=== PATIENT | female | born 1985 | race American Indian/Alaskan Native ===

== ENCOUNTER 2019-03-15 12:10 | Emergency (ER) | payer MEDICAID, OTHER ==
[2019-03-15 12:16] VITALS: BP 113/96; PULSE 88
--- NOTE | 2019-03-15 12:27 | EDM.PDOC ---
ED HPI GENERAL MEDICAL PROBLEM - General Chief Complaint: Abdominal Pain Stated Complaint: AMBULANCE Time Seen by Provider: 03/15/19 12:27 Source of Information: Reports: Patient, EMS, EMS Notes Reviewed, RN, RN Notes Reviewed History Limitations: Reports: No Limitations - History of Present Illness INITIAL COMMENTS - FREE TEXT/NARRATIVE: Pt to ER with c/o left sided abdominal pain. States the sharp pain began this morning. She states the last thing she ate was popcorn. States she has had diarrhea and nausea since this morning. Admits to fever and chills at times. States she has had her tubes tied, no chances of . States no sexual intercourse recently. Denies burning, frequency, urgency with urination. Onset: Today, Sudden Duration: Constant Location: Reports: Abdomen Quality: Reports: Sharp Severity: Moderate Improves with: Reports: None Worsens with: Reports: None - Related Data Allergies Allergy/AdvReac Type Severity Reaction Status Date / Time No Known Allergies Allergy Verified 03/15/19 12:12 Home Meds: Home Meds . 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 Musculoskeletal History: Reports: Osteoarthritis Neurological History: Reports: None Psychiatric History: Reports: Addiction Endocrine/Metabolic History: Reports: None Hematologic History: Reports: None Immunologic History: Reports: None Oncologic (Cancer) History: Reports: None Dermatologic History: Reports: None - Infectious Disease History Infectious Disease History: Reports: Chicken Pox - Past Surgical History Head Surgeries/Procedures: Reports: None GI Surgical History: Reports: Cholecystectomy Female Surgical History: Reports: Section Social & Family History - Family History Family Medical History: Noncontributory - Tobacco Use Smoking Status *Q: Current Every Day Smoker Years of Tobacco use: 17 Packs/Tins Daily: 1 - Caffeine Use Caffeine Use: Reports: Coffee, Soda Other Caffeine Use: unknown - Recreational Drug Use Recreational Drug Use: Yes Drug Use in Last 12 Months: Yes Recreational Drug Type: Reports: Marijuana/Hashish Recreational Drug Use Frequency: Daily - Living Situation & Occupation Living situation: Reports: , with Family ED ROS GENERAL - Review of Systems Review Of Systems: ROS reveals no pertinent complaints other than HPI. ED EXAM, GI/ABD - Physical Exam Exam: See Below Exam Limited By: No Limitations General Appearance: Alert, WD/WN, Moderate Distress Eyes: Bilateral: Normal Appearance, EOMI Ears: Normal External Exam, Hearing Grossly Normal Nose: Normal Inspection Throat/Mouth: Normal Inspection, Normal Voice, No Airway Compromise Head: Atraumatic, Normocephalic Neck: Normal Inspection, Supple, Non-Tender, Full Range of Motion Respiratory/Chest: No Respiratory Distress, Lungs Clear, Normal Breath Sounds, No Accessory Muscle Use, Chest Non-Tender Cardiovascular: Normal Peripheral Pulses, Regular Rate, Rhythm, No Edema, No Gallop, No JVD, No Murmur, No Rub GI/Abdominal Exam: Normal Bowel Sounds, Soft, No Organomegaly, No Distention, No Abnormal Bruit, No Mass, Pelvis Stable, Tender (LUQ, LLQ) (Female) Exam: Deferred Rectal (Female) Exam: Deferred Back Exam: Normal Inspection, Full Range of Motion, NT Extremities: Normal Inspection, Normal Range of Motion, Non-Tender, Normal Capillary Refill, No Pedal Edema Neurological: Alert, Oriented, CN II-XII Intact, Normal Cognition, Normal Gait, Normal Reflexes, No Motor/Sensory Deficits Psychiatric: Normal Affect, Normal Mood, Anxious Skin Exam: Warm, Dry, Intact, Normal Color, No Rash Lymphatic: No Adenopathy Course - Vital Signs Last Recorded V/S: Last Vital Signs Temp 97.6 F 03/15/19 12:12 Pulse 88 03/15/19 12:12 Resp 18 03/15/19 12:12 BP 113/96 H 03/15/19 12:12 Pulse Ox 100 03/15/19 12:12 - Orders/Labs/Meds Labs: Laboratory Tests 03/15/19 03/15/19 03/15/19 Range/Units 12:24 12:24 12:40 WBC 11.6 H (5.0-10.0) 10^3/uL RBC 4.78 (4.2-5.4) 10^6/uL Hgb 11.3 L (12.0-16.0) g/dL Hct 35.9 L (37.0-47.0) % MCV 75.1 L (80-100) fL MCH 23.6 L (27.0-34.0) pg MCHC 31.5 L (33.0-35.0) g/dL Plt Count 308 (150-450) 10^3/uL Neut % (Auto) 85.1 H (42.2-75.2) % Lymph % (Auto) 8.4 L (20.5-50.1) % [place] % (Auto) 5.9 (2-8) % Eos % (Auto) 0.4 L (1.0-3.0) % Baso % (Auto) 0.2 (0.0-1.0) % Sodium (135-145) mmol/L Potassium (3.6-5.0) mmol/L Chloride (101-111) mmol/L Carbon Dioxide (21.0-31.0) mmol/L Anion Gap BUN (7-18) mg/dL Creatinine (0.6-1.3) mg/dL Est Cr Clr Drug Dosing mL/min Estimated GFR (MDRD) BUN/Creatinine Ratio Glucose (74-105) mg/dL Calcium (8.4-10.2) mg/dl Total Bilirubin (0.2-1.0) mg/dL AST (10-42) IU/L ALT (10-60) IU/L Alkaline Phosphatase (42-121) IU/L Total Protein (6.7-8.2) g/dl Albumin (3.2-5.5) g/dl Globulin Albumin/Globulin Ratio Urine Color Yellow (YELLOW) Urine Appearance Clear (CLEAR) Urine pH 7.0 (5.0-9.0) Ur Specific [place] 1.020 (1.005-1.030) Urine Protein Negative (NEGATIVE) Urine Glucose (UA) Negative (NEGATIVE) Urine Ketones Negative (NEGATIVE) Urine Occult Blood Negative (NEGATIVE) Urine Nitrite Negative (NEGATIVE) Urine Bilirubin Negative (NEGATIVE) Urine Urobilinogen 0.2 (0.2-1.0) mg/dL Ur Leukocyte Esterase Negative (NEGATIVE) Urine Opiates Screen Negative (NEGATIVE) Ur Oxycodone Screen Negative (NEGATIVE) Urine Methadone Screen Negative (NEGATIVE) Ur Barbiturates Screen Negative (NEGATIVE) U Tricyclic Antidepress Negative (NEGATIVE) Ur Phencyclidine Scrn Negative (NEGATIVE) Ur Amphetamine Screen Negative (NEGATIVE) U Methamphetamines Scrn Negative (NEGATIVE) Urine MDMA Screen Negative (NEGATIVE) U Benzodiazepines Scrn Negative (NEGATIVE) Urine Cocaine Screen Negative (NEGATIVE) U Marijuana (THC) Screen Negative (NEGATIVE) Ethyl Alcohol mg/dL 03/15/19 Range/Units 12:40 WBC (5.0-10.0) 10^3/uL RBC (4.2-5.4) 10^6/uL Hgb (12.0-16.0) g/dL Hct (37.0-47.0) % MCV (80-100) fL MCH (27.0-34.0) pg MCHC (33.0-35.0) g/dL Plt Count (150-450) 10^3/uL Neut % (Auto) (42.2-75.2) % Lymph % (Auto) (20.5-50.1) % [place] % (Auto) (2-8) % Eos % (Auto) (1.0-3.0) % Baso % (Auto) (0.0-1.0) % Sodium 137 (135-145) mmol/L Potassium 4.0 (3.6-5.0) mmol/L Chloride 104 (101-111) mmol/L Carbon Dioxide 23.0 (21.0-31.0) mmol/L Anion Gap 14.0 BUN 17 (7-18) mg/dL Creatinine 0.7 (0.6-1.3) mg/dL Est Cr Clr Drug Dosing 80.57 mL/min Estimated GFR (MDRD) > 60 BUN/Creatinine Ratio 24.28 Glucose 102 (74-105) mg/dL Calcium 8.9 (8.4-10.2) mg/dl Total Bilirubin 0.5 (0.2-1.0) mg/dL AST 50 H (10-42) IU/L ALT 39 (10-60) IU/L Alkaline Phosphatase 90 (42-121) IU/L Total Protein 7.3 (6.7-8.2) g/dl Albumin 3.8 (3.2-5.5) g/dl Globulin 3.5 Albumin/Globulin Ratio 1.09 Urine Color (YELLOW) Urine Appearance (CLEAR) Urine pH (5.0-9.0) Ur Specific [place] (1.005-1.030) Urine Protein (NEGATIVE) Urine Glucose (UA) (NEGATIVE) Urine Ketones (NEGATIVE) Urine Occult Blood (NEGATIVE) Urine Nitrite (NEGATIVE) Urine Bilirubin (NEGATIVE) Urine Urobilinogen (0.2-1.0) mg/dL Ur Leukocyte Esterase (NEGATIVE) Urine Opiates Screen (NEGATIVE) Ur Oxycodone Screen (NEGATIVE) Urine Methadone Screen (NEGATIVE) Ur Barbiturates Screen (NEGATIVE) U Tricyclic Antidepress (NEGATIVE) Ur Phencyclidine Scrn (NEGATIVE) Ur Amphetamine Screen (NEGATIVE) U Methamphetamines Scrn (NEGATIVE) Urine MDMA Screen (NEGATIVE) U Benzodiazepines Scrn (NEGATIVE) Urine Cocaine Screen (NEGATIVE) U Marijuana (THC) Screen (NEGATIVE) Ethyl Alcohol < 5 mg/dL Meds: Medications Discontinued Medications Generic Name Dose Route Start Last Admin Trade Name Freq PRN Reason Stop Dose Admin Sodium Chloride 1,000 mls @ 999 mls/hr 03/15/19 12:29 03/15/19 12:38 Normal Saline IV 03/15/19 13:29 999 mls/hr .BOLUS ONE Administration Ondansetron HCl 4 mg 03/15/19 12:29 03/15/19 12:38 Zofran IV 03/15/19 12:30 4 mg ONETIME ONE Administration Departure - Departure Time of Disposition: 13:42 Disposition: Home, Self-Care 01 Condition: Fair Clinical Impression: Gastroenteritis Diarrhea Qualifiers: Diarrhea type: unspecified type Qualified Code(s): R19.7 - Diarrhea, unspecified - Discharge Information *PRESCRIPTION DRUG MONITORING PROGRAM REVIEWED*: No *COPY OF PRESCRIPTION DRUG MONITORING REPORT IN PATIENT SON: No Instructions: Viral Gastroenteritis, Adult, [id number], Food Choices to Help Relieve Diarrhea, Adult, Nausea and Vomiting, Adult, [id number], Abdominal Pain, Adult, [id number], Diarrhea, Adult, [id number] Forms: ED Department Discharge Additional Instructions: Bowel rest Fluids and soft diet for a few days Drink plenty of fluids Follow up with your primary care facility
[2019-03-15] MEDS ORDERED: Sodium Chloride 0.9% 1,000 ML IV ONE (12:29)
[2019-03-15] MEDS ORDERED: Ondansetron 4 MG/2 ML SDV IV ONE (12:29)
[2019-03-15 13:03] LABS: CHLORIDE,CL 104 mmol/L (101-111); SODIUM,NA 137 mmol/L (135-145)
== END 2019-03-15 13:37 | disposition home or self-care (01) ==
LOC: DL.ED 12:10
DX: K52.9 Noninfective gastroenteritis and colitis, unspecified (principal); F17.210 Nicotine dependence, cigarettes, uncomplicated
CPT/HCPCS: 36415; 80053; 80305; 80320; 81003; 85025; 96361; 96374; 99284; J2405; J7030; G0480

== ENCOUNTER 2021-03-01 06:03 | Emergency (ER) | payer OTHER ==
[2021-03-01 06:18] VITALS: BP 119/91; PULSE 108
[2021-03-01] MEDS ORDERED: Lidocaine 1% 30 ML SDV INJECT ONE (06:20)
[2021-03-01] MEDS ORDERED: HYDROmorphone 1 MG/ML Syringe IM ONE (06:25)
--- NOTE | 2021-03-01 06:26 | EDM.PDOC ---
<Juan PablobelloZi Linda - Last Filed: 03/01/21 07:44> ED HPI GENERAL MEDICAL PROBLEM - General Chief Complaint: Bite:Animal, Insect Stated Complaint: BUG BITE (SPIDER) Time Seen by Provider: 03/01/21 06:21 - Related Data Allergies Allergy/AdvReac Type Severity Reaction Status Date / Time No Known Allergies Allergy Verified 03/15/19 12:12 Home Meds: Home Meds . [No Known Home Meds] 05/01/18 [History] Course - Re-Assessments/Exams Free Text/Narrative Re-Assessment/Exam: 03/01/21 07:39 No change to CC/HPI, Hx, ROS, exam or lab results as documented by Louise Roman [employer] for this encounter. Departure - Departure Time of Disposition: 08:40 Disposition: Home, Self-Care 01 Condition: Good Clinical Impression: Abscess of left forearm - Discharge Information *PRESCRIPTION DRUG MONITORING PROGRAM REVIEWED*: No *COPY OF PRESCRIPTION DRUG MONITORING REPORT IN PATIENT SON: No Instructions: Skin Abscess, [id number] Referrals: PCP,None [Primary Care Provider] - Forms: ED Department Discharge Additional Instructions: Rx: Clindamycin 300mg Rx: Doxycycline 100mg Warm compresses to left arm. Follow up with your primary clinic tomorrow for wound check and repacking if needed. Return to ER if worse at any time. <Gay Roman Yane - Last Filed: 03/02/21 10:10> ED HPI GENERAL MEDICAL PROBLEM - General Source of Information: Reports: Patient, RN, RN Notes Reviewed History Limitations: Reports: No Limitations - History of Present Illness INITIAL COMMENTS - FREE TEXT/NARRATIVE: Juwan is a 35 y/o female who presents to the ED via personal vehicle with complaints of wound to her left anterior forearm. The patient reports the le aneudy started about one week ago and has progressively worsened in that time. She has been cleaning it and wrapping it daily, however the swelling, redness, and pain persist. Additionally, she notes shaking chills, nausea, vomiting, and diarrhea that started two days ago. She has been taking frequent doses of acetaminophen for her pain. She denies history of MRSA or frequent wounds. 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 Musculoskeletal History: Reports: Osteoarthritis Neurological History: Reports: None Psychiatric History: Reports: Addiction Endocrine/Metabolic History: Reports: None Hematologic History: Reports: None Immunologic History: Reports: None Oncologic (Cancer) History: Reports: None Dermatologic History: Reports: None - Infectious Disease History Infectious Disease History: Reports: Chicken Pox - Past Surgical History Head Surgeries/Procedures: Reports: None HEENT Surgical History: Reports: Other (See Below) Other HEENT Surgeries/Procedures: reptured ear drum GI Surgical History: Reports: Cholecystectomy Female Surgical History: Reports: Section Social & Family History - Family History Family Medical History: No Pertinent Family History - Caffeine Use Caffeine Use: Reports: Coffee, Soda Other Caffeine Use: unknown - Living Situation & Occupation Living situation: Reports: , with Family ED ROS GENERAL - Review of Systems Review Of Systems: Comprehensive ROS is negative, except as noted in HPI. ED EXAM, ANIMAL BITE - Physical Exam Exam: See Below Exam Limited By: No Limitations General Appearance: Alert, Anxious (Tearful) Eye Exam: Bilateral Eye: EOMI, Normal Inspection Ears: Normal External Exam, Hearing Grossly Normal Nose: Normal Inspection, Normal Mucosa, No Blood Throat/Mouth: Normal Inspection, Normal Oropharynx, Normal Voice, No Airway Compromise Head: Atraumatic, Normocephalic Neck: Normal Inspection, Supple, Non-Tender, Full Range of Motion. No: Lymphadenopathy (L), Lymphadenopathy (R) Respiratory/Chest: No Respiratory Distress, Lungs Clear, Chest Non-Tender Cardiovascular: Normal Peripheral Pulses, Regular Rate, Rhythm, No Gallop, No Murmur, No Rub, Tachycardia Peripheral Pulses: 2+: Radial (L), Radial (R) GI/Abdominal: Normal Bowel Sounds, Soft Extremities: Normal Range of Motion, Normal Capillary Refill, Arm Pain (Abscess to left anteriolateral forearm), Increased Warmth (To abscess), Redness (Surrounding abscess) Neurological: Alert, Oriented, CN II-XII Intact, Normal Cognition, Normal Gait, No Motor/Sensory Deficits Psychiatric: Anxious, Tearful Lymphadenopathy: Bilateral: No Adenopathy ED ANIMAL BITE PROCEDURES - I&D Site: Left anterolateral forearm Skin Prep: Providone-Iodine (Betadine), Saline, Sterile Drape Local Anesthesia: Lidocaine: 1% Plain Local Anesthetic Volume: Other (30) Area Incised With: 11 Blade Drainage: Purulent, Bloody, Large Amount Probed to Break Up Loculations: Yes Packed With: None Sterile Dressinx4(s) Complications: No Course - Vital Signs Last Recorded V/S: Last Vital Signs Temp 96.5 F L 03/01/21 06:15 Pulse 108 H 03/01/21 06:15 Resp 18 03/01/21 06:15 BP 119/91 H 03/01/21 06:15 Pulse Ox 94 L 03/01/21 06:15 - Orders/Labs/Meds Labs: Laboratory Tests 03/01/21 03/01/21 03/01/21 Range/Units 06:28 06:28 06:28 WBC 10.9 H (5.0-10.0) 10^3/uL RBC 4.82 (4.2-5.4) 10^6/uL Hgb 11.0 L (12.0-16.0) g/dL Hct 35.1 L (37.0-47.0) % MCV 72.8 L (80-100) fL MCH 22.8 L (27.0-34.0) pg MCHC 31.3 L (33.0-35.0) g/dL Plt Count 341 (150-450) 10^3/uL Neut % (Auto) 75.4 H (42.2-75.2) % Lymph % (Auto) 18.8 L (20.5-50.1) % [place] % (Auto) 4.9 (2-8) % Eos % (Auto) 0.7 L (1.0-3.0) % Baso % (Auto) 0.2 (0.0-1.0) % Add Manual Diff Yes Neutrophils % (Manual) 79 H (42-75) % Lymphocytes % (Manual) 13 L (20-50) % Atypical Lymphs % 2 % Monocytes % (Manual) 3 (2-8) % Eosinophils % (Manual) 3 (1-3) % Hypochromasia 1+ slight Anisocytosis 1+ slight Microcytosis 1+ slight Lactic Acid 0.9 (0.4-2.0) mmol/L C-Reactive Protein 4.0 H (0.0-0.9) mg/dL Meds: Medications Discontinued Medications Generic Name Dose Route Start Last Admin Trade Name Freq PRN Reason Stop Dose Admin Hydromorphone HCl 1 mg 03/01/21 06:25 03/01/21 06:35 Hydromorphone 1 Mg/Ml Syringe IM 03/01/21 06:26 1 mg ONETIME ONE Administration Vancomycin HCl 1.25 gm/ Sodium 250 mls @ 167 mls/hr 03/01/21 07:12 03/01/21 07:47 Chloride IV 03/01/21 08:41 167 mls/hr ONETIME ONE Administration Lidocaine HCl 30 ml 03/01/21 06:20 03/01/21 06:24 Lidocaine 1% 30 Ml Sdv INJECT 03/01/21 06:21 30 ml ONETIME ONE Administration - Re-Assessments/Exams Free Text/Narrative Re-Assessment/Exam: 03/01/21 I&D to left forearm performed without complication. Wound culture and blood culture sent. Vancomycin 1.25mg IVPB administered. Care of patient transferred to Dr. Jose at 0700. Sepsis Event Note (ED) - Evaluation Sepsis Screening Result: No Definite Risk
== END 2021-03-01 09:36 | disposition home or self-care (01) ==
LOC: DL.ED 06:03
DX: L02.414 Cutaneous abscess of left upper limb (principal)
CPT/HCPCS: 10060; 36415; 83605; 85025; 86140; 87040; 87070; 87077; 96365; 96366; 96372; 99284; J1170; J3370; J7050

== ENCOUNTER 2021-10-30 11:46 | Emergency (ER) | payer MEDICAID | END 2021-10-30 13:30 | disposition home or self-care (01) | LOC: DL.ED 11:46 | DX: L03.114 Cellulitis of left upper limb (principal); M17.11 Unilateral primary osteoarthritis, right knee; F15.10 Other stimulant abuse, uncomplicated; F17.210 Nicotine dependence, cigarettes, uncomplicated; Z88.5 Allergy status to narcotic agent | CPT/HCPCS: 73562-RT; 99284 ==

== ENCOUNTER 2021-11-18 02:20 | Emergency (ER) | payer MEDICAID ==
[2021-11-18] MEDS ORDERED: Sodium Chloride 0.9% 10 ML Syringe FLUSH PRN (02:59)
[2021-11-18 03:50] LABS: ANION GAP 16.4 mEq/L (7-13)
[2021-11-18 04:43] LABS: MDMA (ECSTASY), URINE POSITIVE (NEGATIVE); METHAMPHETAMINES,URINE POSITIVE (NEGATIVE)
[2021-11-18 04:44] LABS: AMPHETAMINES,URINE POSITIVE (NEGATIVE); BARBITURATES,URINE NEGATIVE (NEGATIVE); BENZODIAZEPINE,URINE NEGATIVE (NEGATIVE); METHADONE,URINE NEGATIVE (NEGATIVE); OPIATES,URINE NEGATIVE (NEGATIVE); OXYCODONE,URINE NEGATIVE (NEGATIVE); PHENCYCLIDINE,URINE NEGATIVE (NEGATIVE); TCA,URINE NEGATIVE (NEGATIVE)
== END 2021-11-18 05:07 | disposition home or self-care (01) ==
LOC: DL.ED 02:20
DX: F10.10 Alcohol abuse, uncomplicated (principal); F15.10 Other stimulant abuse, uncomplicated; M19.90 Unspecified osteoarthritis, unspecified site; F17.210 Nicotine dependence, cigarettes, uncomplicated; Z88.5 Allergy status to narcotic agent; Y90.6 Blood alcohol level of 120-199 mg/100 ml
CPT/HCPCS: 36415; 70450; 80053; 80305-QW; 80307; 81001; 81025; 84484; 85025; 87086; 99283; 99284-25